=== PATIENT | male | born 1960 | race Caucasian/White ===

== ENCOUNTER 2023-07-10 01:53 | Inpatient (IN) | payer BC, MEDICARE ==
[~2023-07-10] VITALS: Ht 185.4 cm; Wt 78.7 kg
[2023-07-10 03:19] LABS: Hemoglobin 8.7 g/dL (13.5-17.5); Mean Corpuscular Hemoglobin 31.2 pg (28.0-32.0); Mean Corpuscular Hgb Conc. 33.6 g/dL (32.0-36.0); Mean Corpuscular Volume 93.1 fL (80.0-100.0); White Blood Cell 16.5 10^3/uL (4.4-10.8)
[2023-07-10 03:27] LABS: Band Neutrophils % (manual) 0; Basophils % (manual) 0 (0.0-2.0); Blast Cells 0; Metamyelocytes % 0; Promyelocytes % 0; Reactive Lymphocytes 0
[2023-07-10 03:38] LABS: Alanine Aminotransferase 21 U/L (7-40); Albumin 3.2 g/dL (3.2-4.8); Alkaline Phosphatase 374 U/L (46-116); Anion Gap 8 (5-15); Aspartate Aminotransferase 52 U/L (13-40); BUN/Creatinine Ratio 7.8 (10.0-20.0); Blood Urea Nitrogen 14 mg/dL (9-23); Carbon Dioxide 18 mmol/L (20-30); Chloride 99 mmol/L (98-107); Glucose 102 mg/dL (74-106); Lipase 24 U/L (12-53); Potassium 4.7 mmol/L (3.5-5.1); Sodium 125 mmol/L (136-145)
[2023-07-10 03:39] LABS: Total Protein 7.1 g/dL (5.7-8.2)
[2023-07-10 04:31] LABS: Eosinophils % (manual) 4 (0-7); Lymphocytes % (manual) 15 (10.0-50.0); Monocytes % (manual) 11 (0-12); Myelocytes % 4
[2023-07-10 04:32] LABS: Platelet Estimate Increased
[2023-07-10 08:58] LABS: INR 1.35 (0.9-1.15); Prothrombin Time 13.9 sec (9.3-11.8)
[2023-07-10] MEDS ORDERED: cefTRIAXone 1GM/50ML D5W 50 ML IV SCH (09:00)
[2023-07-10 09:11] LABS: Urine Bacteria NONE SEEN /hpf (None Seen); Urine Blood Negative /uL (Negative); Urine Clarity Clear (Clear); Urine Hyaline Cast FEW /lpf (0 - 2); Urine Protein, UAD TRACE (Negative); Urine Specific Gravity 1.016 (1.001-1.035); Urine Urobilinogen Normal (Negative); Urine WBC 2 /hpf (0 - 3)
[2023-07-10 09:13] LABS: Urine Color Yellow (Yellow)
[2023-07-10 10:12] VITALS: PULSE 84; RESP 16; O2SAT 100
[2023-07-10] MEDS ORDERED: ACETAMINOPHEN 500 MG TAB PO PRN (11:30)
[2023-07-10] MEDS ORDERED: SODIUM CHLORIDE 0.9% 1,000 ML IV ONE (11:30)
[2023-07-10] MEDS ORDERED: NITROGLYCERIN 0.4 MG SL TAB SL PRN (11:30)
[2023-07-10] MEDS ORDERED: MORPHINE SULFATE INJ 2 MG/ml SYRG IV PRN (11:30)
[2023-07-10 12:35] LABS: Amphetamine Screen, Urine Neg (NEGATIVE); Barbiturate Scree,Urine Neg (NEGATIVE); Benzodiazephine Screen, Urine Neg (NEGATIVE); Cannabinoid Screen, Urine Neg (NEGATIVE); Cocaine Screen, Urine Neg (NEGATIVE); Opiate Scree,Urine Neg (NEGATIVE); Phencyclidine Screen, Urine Neg (NEGATIVE)
[2023-07-10] MEDS: metroNIDAZOLE 500MG/100ML 100 ML IV SCH ×2 (13:24→21:26)
[2023-07-10 17:00] VITALS: BP 125/81; PULSE 96; RESP 16; TEMP 97.5; O2SAT 100
[2023-07-10 17:10] VITALS: BP 113/64; PULSE 101; PULSE 75; RESP 18; TEMP 98.6; O2SAT 98
[2023-07-10 20:00] VITALS: BP 118/69; PULSE 97; RESP 18; TEMP 97.5; O2SAT 97
[2023-07-10] MEDS: MORPHINE SULFATE INJ 2 MG/ml SYRG IV PRN (21:37)
[2023-07-10 22:00] VITALS: BP 118/69; PULSE 97; RESP 18; TEMP 97.5; O2SAT 100
[2023-07-11] VITALS (7 sets, daily range): BP systolic 107–134; BP diastolic 67–80; PULSE 93–101; RESP 18–20; TEMP 97.5–97.9; O2SAT 97–100
[2023-07-11 05:11] LABS: Hemoglobin 8.3 g/dL (13.5-17.5); Mean Corpuscular Hgb Conc. 33.2 g/dL (32.0-36.0); Mean Corpuscular Volume 93.5 fL (80.0-100.0); Red Blood Cells 2.67 10^6/uL (4.5-5.90); Red Cell Distribution Width 16.2 % (11.8-14.3); White Blood Cell 14.8 10^3/uL (4.4-10.8)
[2023-07-11 05:21] LABS: Alanine Aminotransferase 18 U/L (7-40); Albumin 2.8 g/dL (3.2-4.8); Alkaline Phosphatase 311 U/L (46-116); Anion Gap 11 (5-15); Aspartate Aminotransferase 50 U/L (13-40); BUN/Creatinine Ratio 7.9 (10.0-20.0); Bilirubin, Total 1.4 mg/dL (0.2-1.0); Blood Urea Nitrogen 12 mg/dL (9-23); Calcium 7.8 mg/dL (8.7-10.4); Carbon Dioxide 16 mmol/L (20-30); Chloride 100 mmol/L (98-107); Glucose 76 mg/dL (74-106); Potassium 4.2 mmol/L (3.5-5.1); Sodium 127 mmol/L (136-145); Total Protein 6.4 g/dL (5.7-8.2)
[2023-07-11 05:32] LABS: Basophils % (manual) 0 (0.0-2.0); Blast Cells 0; Promyelocytes % 0; Reactive Lymphocytes 0
[2023-07-11] MEDS: MORPHINE SULFATE INJ 2 MG/ml SYRG IV PRN ×3 (05:57→21:46)
[2023-07-11] MEDS: metroNIDAZOLE 500MG/100ML 100 ML IV SCH ×3 (06:02→21:45)
[2023-07-11 08:24] LABS: Anisocytosis Slight; Band Neutrophils % (manual) 3; Eosinophils % (manual) 3 (0-7); Lymphocytes % (manual) 13 (10.0-50.0); Metamyelocytes % 1; Monocytes % (manual) 13 (0-12); Myelocytes % 1; Platelet Estimate Increased
[2023-07-11] MEDS: levoFLOXacin 500MG 100 ML IV SCH (10:39)
[2023-07-12] VITALS (8 sets, daily range): BP systolic 105–128; BP diastolic 68–85; PULSE 95–109; RESP 18–20; TEMP 97.5–98.3; O2SAT 96–100
[2023-07-12] MEDS: metroNIDAZOLE 500MG/100ML 100 ML IV SCH ×3 (05:44→21:15)
[2023-07-12] MEDS: MORPHINE SULFATE INJ 2 MG/ml SYRG IV PRN ×3 (05:45→18:21)
[2023-07-12 06:28] LABS: Basophils # (auto) 0.2 10 ^3/uL (0-0.2); Basophils % (auto) 1.3 % (0.0-2.0); Hemoglobin 8.5 g/dL (13.5-17.5); Lymphocytes # (auto) 1.2 10 ^3/uL (0.4-5.4)
[2023-07-12 06:41] LABS: Anion Gap 9 (5-15); Carbon Dioxide 16 mmol/L (20-30); Chloride 104 mmol/L (98-107); Potassium 3.8 mmol/L (3.5-5.1); Sodium 129 mmol/L (136-145)
[2023-07-12 06:42] LABS: Calcium 7.6 mg/dL (8.7-10.4)
[2023-07-12 06:47] LABS: BUN/Creatinine Ratio 9.8 (10.0-20.0); Blood Urea Nitrogen 11 mg/dL (9-23); Glucose 86 mg/dL (74-106)
[2023-07-12 07:39] LABS: Eosinophils # (auto) 0.5 10 ^3/uL (0-0.8); Eosinophils % (auto) 4.2 % (0.0-7.0); Hematocrit 25.4 % (41.0-53.0); Mean Corpuscular Hemoglobin 31.2 pg (28.0-32.0); Mean Corpuscular Hgb Conc. 33.3 g/dL (32.0-36.0); Mean Corpuscular Volume 93.7 fL (80.0-100.0); Monocytes # (auto) 1.6 10 ^3/uL (0-1.3); Monocytes % (auto) 12.4 % (0.0-12.0); Neutrophils # (auto) 9.3 10 ^3/uL (1.6-8.6); Neutrophils % (auto) 73.1 % (37.0-80.0); Red Blood Cells 2.71 10^6/uL (4.5-5.90); White Blood Cell 12.7 10^3/uL (4.4-10.8)
[2023-07-12] MEDS: levoFLOXacin 500MG 100 ML IV SCH (09:39)
[2023-07-12] MEDS ORDERED: FUROSEMIDE 40 MG/4 ML VIAL IV ONE (15:15)
[2023-07-13] MEDS: MORPHINE SULFATE INJ 2 MG/ml SYRG IV PRN ×5 (00:04→23:29)
[2023-07-13 05:00] VITALS: BP 108/66; PULSE 103; RESP 18; TEMP 98; O2SAT 94
[2023-07-13] MEDS: metroNIDAZOLE 500MG/100ML 100 ML IV SCH ×3 (05:36→21:53)
[2023-07-13 06:41] LABS: Alanine Aminotransferase 16 U/L (7-40); Albumin 2.8 g/dL (3.2-4.8); Alkaline Phosphatase 301 U/L (46-116); Anion Gap 11 (5-15); Aspartate Aminotransferase 51 U/L (13-40); BUN/Creatinine Ratio 7.9 (10.0-20.0); Blood Urea Nitrogen 9 mg/dL (9-23); Calcium 7.7 mg/dL (8.7-10.4); Carbon Dioxide 16 mmol/L (20-30); Chloride 104 mmol/L (98-107); Glucose 90 mg/dL (74-106); Potassium 3.4 mmol/L (3.5-5.1); Sodium 131 mmol/L (136-145)
[2023-07-13 06:43] LABS: Bilirubin, Total 1.1 mg/dL (0.2-1.0); Total Protein 6.3 g/dL (5.7-8.2)
[2023-07-13 07:22] LABS: Mean Corpuscular Hgb Conc. 33.1 g/dL (32.0-36.0)
[2023-07-13 07:24] LABS: Hematocrit 27.2 % (41.0-53.0); Mean Corpuscular Hemoglobin 31.6 pg (28.0-32.0); Mean Corpuscular Volume 95.5 fL (80.0-100.0); Red Blood Cells 2.84 10^6/uL (4.5-5.90); Red Cell Distribution Width 16.2 % (11.8-14.3); White Blood Cell 12.2 10^3/uL (4.4-10.8)
[2023-07-13 07:29] LABS: Band Neutrophils % (manual) 0; Basophils % (manual) 0 (0.0-2.0); Blast Cells 0; Metamyelocytes % 0; Promyelocytes % 0; Reactive Lymphocytes 0
[2023-07-13 08:00] VITALS: PULSE 112; RESP 20; O2SAT 96
[2023-07-13 09:00] VITALS: BP 144/100; PULSE 112; RESP 20; O2SAT 97
[2023-07-13] MEDS: levoFLOXacin 500MG 100 ML IV SCH (09:39)
[2023-07-13 12:55] LABS: Eosinophils % (manual) 7 (0-7); Lymphocytes % (manual) 16 (10.0-50.0); Monocytes % (manual) 12 (0-12); Myelocytes % 1; Platelet Estimate Increased
[2023-07-13 13:00] VITALS: BP 107/63; PULSE 92; RESP 18; TEMP 98; O2SAT 99
[2023-07-13] MEDS ORDERED: POTASSIUM EFFERVESENT TAB 25 MEQ PO ONE (14:45)
[2023-07-13 17:00] VITALS: BP 115/71; PULSE 107; RESP 17; TEMP 97.5; O2SAT 96
[2023-07-13] MEDS: SPIRONOLACTONE 25 MG TAB PO SCH (17:02)
[2023-07-13 20:00] VITALS: BP 110/70; PULSE 109; RESP 18; TEMP 97.8; O2SAT 96; O2SAT 97
[2023-07-13] MEDS: ONDANSETRON HCL 4 MG/2 ML VIAL IV PRN (22:25)
[2023-07-14] VITALS (7 sets, daily range): BP systolic 107–118; BP diastolic 65–76; PULSE 100–104; RESP 17–20; TEMP 97.4–98.2; O2SAT 91–99
[2023-07-14] MEDS: metroNIDAZOLE 500MG/100ML 100 ML IV SCH ×2 (05:39→13:57)
[2023-07-14] MEDS: MORPHINE SULFATE INJ 2 MG/ml SYRG IV PRN ×3 (05:40→18:54)
[2023-07-14] MEDS: SPIRONOLACTONE 25 MG TAB PO SCH ×2 (06:19→17:15)
[2023-07-14 06:57] LABS: Hemoglobin 9.2 g/dL (13.5-17.5); Red Cell Distribution Width 16.2 % (11.8-14.3)
[2023-07-14 07:00] LABS: Hematocrit 28.1 % (41.0-53.0); Mean Corpuscular Hemoglobin 30.4 pg (28.0-32.0); Mean Corpuscular Hgb Conc. 32.7 g/dL (32.0-36.0); Mean Corpuscular Volume 93.1 fL (80.0-100.0); Red Blood Cells 3.02 10^6/uL (4.5-5.90); White Blood Cell 14.3 10^3/uL (4.4-10.8)
[2023-07-14 07:05] LABS: Chloride 101 mmol/L (98-107); Potassium 4.3 mmol/L (3.5-5.1); Sodium 128 mmol/L (136-145)
[2023-07-14 07:06] LABS: Anion Gap 7 (5-15); Carbon Dioxide 20 mmol/L (20-30)
[2023-07-14 07:11] LABS: BUN/Creatinine Ratio 7.8 (10.0-20.0); Blood Urea Nitrogen 8 mg/dL (9-23); Glucose 88 mg/dL (74-106)
[2023-07-14 07:16] LABS: Band Neutrophils % (manual) 0; Basophils % (manual) 0 (0.0-2.0); Blast Cells 0; Metamyelocytes % 0; Myelocytes % 0; Promyelocytes % 0; Reactive Lymphocytes 0
[2023-07-14 09:35] LABS: Eosinophils % (manual) 8 (0-7); Lymphocytes % (manual) 19 (10.0-50.0); Monocytes % (manual) 8 (0-12); Platelet Estimate Increased
[2023-07-14] MEDS: FUROSEMIDE 20 MG/2 ML VIAL IV SCH (09:36)
[2023-07-14] MEDS: levoFLOXacin 500MG 100 ML IV SCH (09:40)
[2023-07-14] MEDS: ONDANSETRON HCL 4 MG/2 ML VIAL IV PRN (15:44)
[2023-07-14 18:27] LABS: Body Fluid Polymorphonuclear 25 % (0-25); Body Fluid Red Blood Cells 32.5 CUMM (0-2000); Body Fluid White Blood Cells 100 CUMM (0-200)
[2023-07-14] MEDS: metroNIDAZOLE 500 MG TAB PO SCH (21:41)
[2023-07-15] VITALS (8 sets, daily range): BP systolic 111–119; BP diastolic 65–81; PULSE 100–125; RESP 16–19; TEMP 97–98.8; O2SAT 92–99
[2023-07-15] MEDS: MORPHINE SULFATE INJ 2 MG/ml SYRG IV PRN (00:03)
[2023-07-15] MEDS: SPIRONOLACTONE 25 MG TAB PO SCH ×2 (05:59→18:17)
[2023-07-15] MEDS: metroNIDAZOLE 500 MG TAB PO SCH ×3 (05:59→21:38)
[2023-07-15 06:32] LABS: Anion Gap 8 (5-15); Calcium 7.4 mg/dL (8.7-10.4); Carbon Dioxide 19 mmol/L (20-30); Chloride 100 mmol/L (98-107); Potassium 3.7 mmol/L (3.5-5.1); Sodium 127 mmol/L (136-145)
[2023-07-15 06:38] LABS: Blood Urea Nitrogen 11 mg/dL (9-23); Glucose 92 mg/dL (74-106)
[2023-07-15 07:02] LABS: Hemoglobin 8.9 g/dL (13.5-17.5)
[2023-07-15 07:05] LABS: Hematocrit 26.5 % (41.0-53.0); Mean Corpuscular Hemoglobin 31.4 pg (28.0-32.0); Mean Corpuscular Hgb Conc. 33.7 g/dL (32.0-36.0); Mean Corpuscular Volume 93.1 fL (80.0-100.0); Red Blood Cells 2.84 10^6/uL (4.5-5.90); Red Cell Distribution Width 16.5 % (11.8-14.3); White Blood Cell 13.6 10^3/uL (4.4-10.8)
[2023-07-15 07:15] LABS: Basophils % (manual) 0 (0.0-2.0); Blast Cells 0; Metamyelocytes % 0; Promyelocytes % 0; Reactive Lymphocytes 0
[2023-07-15 09:13] LABS: Band Neutrophils % (manual) 8; Eosinophils % (manual) 3 (0-7); Lymphocytes % (manual) 17 (10.0-50.0); Monocytes % (manual) 8 (0-12); Myelocytes % 2; Platelet Estimate Increased
[2023-07-15] MEDS: levoFLOXacin 500 MG TAB PO SCH (09:28)
[2023-07-15] MEDS: FUROSEMIDE 20 MG/2 ML VIAL IV SCH (09:29)
[2023-07-15] MEDS: ONDANSETRON HCL 4 MG/2 ML VIAL IV PRN (12:04)
[2023-07-15 12:06] LABS: Protein, Body Fluid 2.1 g/dL (.)
[2023-07-15] MEDS ORDERED: LEVO500T91 PO (14:22)
[2023-07-15] MEDS ORDERED: SPIR25TA PO (14:22)
[2023-07-15] MEDS: HYDROcodone-ACET 5/325MG TAB PO PRN (18:23)
[2023-07-16] MEDS: HYDROcodone-ACET 5/325MG TAB PO PRN (00:27)
[2023-07-16] MEDS: ONDANSETRON HCL 4 MG/2 ML VIAL IV PRN (00:33)
[2023-07-16 05:00] VITALS: BP 138/82; PULSE 108; RESP 17; TEMP 98.6; O2SAT 93
[2023-07-16] MEDS: SPIRONOLACTONE 25 MG TAB PO SCH ×2 (06:21→18:00)
[2023-07-16] MEDS: metroNIDAZOLE 500 MG TAB PO SCH ×2 (06:21→14:00)
[2023-07-16 08:00] VITALS: O2SAT 95
[2023-07-16 08:56] VITALS: BP 110/68; PULSE 108; RESP 12; TEMP 98; O2SAT 97
[2023-07-16] MEDS: levoFLOXacin 500 MG TAB PO SCH (10:25)
[2023-07-16] MEDS: FUROSEMIDE 20 MG/2 ML VIAL IV SCH (10:25)
[2023-07-16 12:31] VITALS: BP 105/66; PULSE 112; RESP 18; TEMP 98; O2SAT 96
== END 2023-07-16 17:22 | disposition home or self-care (01) | DRG 872 ==
LOC: ER 01:53 → OVERFLOW 11:17 → WEST WING 17:25
PROVIDERS: ADMIT Nurse Practitioner Acute Care; ATTEND Nurse Practitioner Acute Care
PROC: 0W9G3ZZ Drainage of Peritoneal Cavity, Percutaneous Approach (ICD-10-PCS; principal; 2023-07-14)
DX: A41.9 Sepsis, unspecified organism (principal); E87.1 Hypo-osmolality and hyponatremia; R18.8 Other ascites; D64.9 Anemia, unspecified; G89.4 Chronic pain syndrome; K43.9 Ventral hernia without obstruction or gangrene; K52.9 Noninfective gastroenteritis and colitis, unspecified; K74.60 Unspecified cirrhosis of liver; N18.31 Chronic kidney disease, stage 3a; M19.90 Unspecified osteoarthritis, unspecified site; Z88.0 Allergy status to penicillin; Z88.1 Allergy status to other antibiotic agents; Z96.649 Presence of unspecified artificial hip joint; Z79.899 Other long term (current) drug therapy; M54.50 Low back pain, unspecified
CPT/HCPCS: 36415; 71045; 74176; 76705; 76942; 80048; 80053; 80307; 81001; 83690; 83986; 85007; 85025; 85027; 85610; 87040; 87045; 87205; 87427; 87493; 89051; 96365; 97110; 97116; 97163; 97530; 99291; G0378; J1956; J2405; J3490